=== PATIENT | female | born 1940 | race Caucasian/White ===

== ENCOUNTER 2019-02-28 19:15 | Inpatient (IN) | payer OTHER ==
[2019-02-28] MEDS ORDERED: ALBUTEROL/IPRATROPIUM 1 VIAL SOL INH ONE (19:26)
[2019-02-28] MEDS ORDERED: SODIUM CHLORIDE 0.9% 1000ML 1,000 ML IV ONE ×2 (19:26→19:49)
[2019-02-28] MEDS ORDERED: SOLUMEDROL 125 MG/2 ML 125 MG/2 ML PDS IV ONE (19:27)
[2019-02-28] MEDS ORDERED: SOLUMEDROL 125 MG/2 ML 125 MG/2 ML PDS ONE (19:31)
[2019-02-28] MEDS ORDERED: ALBUTEROL/IPRATROPIUM 1 VIAL SOL ONE (19:31)
[2019-02-28 19:43] LABS: BASOPHILS % (AUTO) 1 % (0-3); EOSINOPHILS % (AUTO) 0 % (0-9); HEMATOCRIT 37 % (35-47); HEMOGLOBIN 12.1 gm/dl (12.0-15.5); LYMPHOCYTES % (AUTO) 13.1 % (10-50); MEAN CORPUSCULAR HEMOGLOBIN 29.7 pg (27.0-32.0); MEAN CORPUSCULAR HGB CONC 32.6 gm/dl (32.0-36.0); MEAN CORPUSCULAR VOLUME 91 fL (81-99); MONOCYTES % (AUTO) 6.8 % (0-12); NEUTROPHILS % (AUTO) 78.9 % (37-80)
[2019-02-28 19:45] LABS: LACTIC ACID 2.8 mMol/L (0.0-2.0)
[2019-02-28] MEDS: SODIUM CHLORIDE 0.9% FLUSH 10 ML SOL IV PRN (19:45)
[2019-02-28 20:04] LABS: ALBUMIN 3.2 gm/dl (3.4-5.0); ALKALINE PHOSPHATASE 124 IU/L (46-116); ALT 16 IU/L (14-63); AST 11 IU/L (15-37); BILIRUBIN,TOTAL 0.3 mg/dl (0.2-1.0); BLOOD UREA NITROGEN 34 mg/dl (7-18); CALCIUM 9.2 mg/dl (8.5-10.1); CARBON DIOXIDE 22.6 mEq/L (21-32); CHLORIDE 100 mMol/L (98-107); CREATININE 1.85 mg/dl (0.60-1.00); GLUCOSE 305 mg/dl (74-106); POTASSIUM 3.8 mMol/L (3.5-5.1); SODIUM 135 mMol/L (136-145); TOTAL PROTEIN 6.9 gm/dl (6.4-8.2); TROP I < 0.017 ng/ml (0.000-0.056)
[2019-02-28] MEDS ORDERED: ASPIRIN 81 MG CHEWABLE CTB ONE (20:35)
[2019-02-28] MEDS ORDERED: ASPIRIN 81 MG CHEWABLE CTB PO ONE (20:36)
[2019-02-28 22:11] LABS: APPEARANCE,URINE Slightly Cloudy; BILIRUBIN,URINE NEGATIVE (NEGATIVE); COLOR,URINE Yellow; GLUCOSE, URINE (UA) 2+ (NEGATIVE); KETONES,URINE NEGATIVE (NEGATIVE); LEUKOCYTE ESTERASE ,URINE TRACE (NEGATIVE); NITRATE,URINE NEGATIVE (NEGATIVE); OCCULT BLOOD,URINE 1+ (NEG-TRACE); UROBILINOGEN,URINE 0.2 (0.2-1.0 EU)
[2019-02-28 22:16] LABS: RBC,URINE 0-2 (0-3AV/HPF)
[2019-02-28 22:17] LABS: BACTERIA 4+ (< 1+); CRYSTALS NEGATIVE (0-3 AVE/HPF); WBC,URINE 25-35 (0-5AV/HPF)
[2019-02-28] MEDS ORDERED: CLONIDINE 0.1 MG TAB PO ONE (22:38)
[2019-02-28] MEDS ORDERED: CLONIDINE 0.1 MG TAB ONE (22:44)
[2019-03-01] MEDS ORDERED: SODIUM CHLORIDE 0.9% 1000ML 1,000 ML IV ONE ×2 (00:48→00:52)
[2019-03-01] MEDS ORDERED: AZITHROMYCIN 500 MG PDS 500 MG in SODIUM CHLORIDE 0.9% 250 ML 250 ML IV ONE (00:58)
[2019-03-01 01:24] LABS: ABG PH 7.36 (7.35-7.45)
[2019-03-01] MEDS ORDERED: AZITHROMYCIN 500 MG PDS IV ONE (01:29)
[2019-03-01] MEDS ORDERED: SODIUM CHLORIDE 0.9% 50 ML 50 ML IV ONE (01:32)
[2019-03-01] MEDS ORDERED: ERTAPENEM SODIUM 1 GM PDS ONE (01:32)
[2019-03-01 01:39] LABS: ALBUMIN 2.9 gm/dl (3.4-5.0); BILIRUBIN,TOTAL 0.3 mg/dl (0.2-1.0); CALCIUM 9.7 mg/dl (8.5-10.1); CARBON DIOXIDE 21.1 mEq/L (21-32); CREATININE 1.66 mg/dl (0.60-1.00); POTASSIUM 4.2 mMol/L (3.5-5.1); TOTAL PROTEIN 6.8 gm/dl (6.4-8.2)
[2019-03-01 01:46] LABS: LACTIC ACID 1.8 mMol/L (0.0-2.0)
[2019-03-01] MEDS ORDERED: INSULIN GLARGINE, RECOMBINAN 100 U/ML SOL SC ONE (04:16)
[2019-03-01] MEDS ORDERED: APAP/HYDROCODONE 1 EACH TABLET PO ONE (04:17)
[2019-03-01] MEDS ORDERED: ALBUTEROL NEB SOL 2.5MG/3ML 1 VIAL SOL NEB PRN (05:40)
[2019-03-01] MEDS ORDERED: ALBUTEROL/IPRATROPIUM 1 VIAL SOL INH SCH ×2 (05:45→09:00)
[2019-03-01] MEDS ORDERED: ALBUTEROL HFA 60 PUFF/INHALER INH PRN (05:59)
[2019-03-01] MEDS ORDERED: BETAMETHASONE TOP PRN (05:59)
[2019-03-01] MEDS ORDERED: ACETAMINOPHEN PO PRN (05:59)
[2019-03-01] MEDS ORDERED: HYDROCODONE PO PRN (05:59)
[2019-03-01] MEDS ORDERED: PROPYLENE GLYC TOP PRN (05:59)
[2019-03-01] MEDS ORDERED: NOVOLOG FLEXPEN SC SCH ×2 (07:00→12:00)
[2019-03-01 07:09] LABS: LACTIC ACID 0.9 mMol/L (0.0-2.0)
[2019-03-01 07:31] LABS: BASOPHILS % (AUTO) 0 % (0-3); EOSINOPHILS % (AUTO) 0 % (0-9); HEMATOCRIT 33 % (35-47); HEMOGLOBIN 10.8 gm/dl (12.0-15.5); LYMPHOCYTES % (AUTO) 11.8 % (10-50); MEAN CORPUSCULAR HEMOGLOBIN 29.7 pg (27.0-32.0); MEAN CORPUSCULAR HGB CONC 32.1 gm/dl (32.0-36.0); MEAN CORPUSCULAR VOLUME 92 fL (81-99); MONOCYTES % (AUTO) 1.9 % (0-12)
[2019-03-01 07:37] VITALS: RESP 18
[2019-03-01 07:39] LABS: BLOOD UREA NITROGEN 35 mg/dl (7-18); CALCIUM 8.5 mg/dl (8.5-10.1); CARBON DIOXIDE 22.7 mEq/L (21-32); CHLORIDE 105 mMol/L (98-107); CREATININE 1.61 mg/dl (0.60-1.00); GLUCOSE 312 mg/dl (74-106); POTASSIUM 4.6 mMol/L (3.5-5.1); SODIUM 137 mMol/L (136-145); TROP I < 0.017 ng/ml (0.000-0.056)
[2019-03-01] MEDS ORDERED: SODIUM CHLORIDE 0.9% 1000ML 1,000 ML IV SCH (08:00)
[2019-03-01 08:20] VITALS: BP 183/73; TEMP 98.5
[2019-03-01] MEDS ORDERED: ASPIRIN 325 MG TAB PO SCH (09:00)
[2019-03-01] MEDS ORDERED: METFORMIN HYDROCHLORIDE 500 MG TAB PO SCH (09:00)
[2019-03-01] MEDS ORDERED: OMEPRAZOLE 20 MG CAPSULE PO SCH (09:00)
[2019-03-01] MEDS ORDERED: ASPIRIN 81 MG CHEWABLE CTB PO SCH (09:00)
[2019-03-01] MEDS ORDERED: ASPIRIN EC 81 MG PO SCH (09:00)
[2019-03-01] MEDS ORDERED: SOLUMEDROL 125 MG/2 ML 125 MG/2 ML PDS IV SCH (09:00)
[2019-03-01] MEDS ORDERED: SITAGLIPTIN PHOSPHATE 100 MG PO SCH (09:00)
[2019-03-01] MEDS ORDERED: PANTOPRAZOLE SODIUM 40 MG ECT PO SCH (09:00)
[2019-03-01] MEDS ORDERED: VALSARTAN PO SCH (09:00)
[2019-03-01] MEDS ORDERED: ATORVASTATIN 10 MG TAB PO SCH (09:00)
[2019-03-01] MEDS ORDERED: HCTZ PO SCH (09:00)
[2019-03-01] MEDS ORDERED: ERTAPENEM SODIUM 1 GM PDS 1 GM in SODIUM CHLORIDE 0.9% 50 ML 50 ML IV SCH (09:00)
[2019-03-01] MEDS: SODIUM CHLORIDE 0.9% FLUSH 10 ML SOL IV PRN (09:06)
[2019-03-01 09:22] VITALS: PULSE 71; O2SAT 96
[2019-03-01] MEDS ORDERED: APAP/HYDROCODONE 1 EACH TABLET PO PRN (10:00)
[2019-03-01] MEDS ORDERED: INSULIN GLARGINE, RECOMBINAN 100 U/ML SOL SC SCH (21:00)
[2019-03-01] MEDS ORDERED: ZOLPIDEM TARTRATE 5 MG TAB PO SCH (21:00)
[2019-03-02] MEDS ORDERED: LEVOTHYROXINE SODIUM 50 MCG TAB PO SCH (07:00)
== END 2019-03-01 13:50 | disposition home or self-care (01) | DRG 192 ==
LOC: ED 19:15 → ACUTE CARE 23:10 → OBSVTOIN 23:10
PROVIDERS: ADMIT Internal Medicine; ATTEND Family Medicine
DX: J44.1 Chronic obstructive pulmonary disease with (acute) exacerbation (principal); R06.02 Shortness of breath; R60.9 Edema, unspecified; T14.8XXA Other injury of unspecified body region, initial encounter; E11.42 Type 2 diabetes mellitus with diabetic polyneuropathy; E11.9 Type 2 diabetes mellitus without complications; Z79.899 Other long term (current) drug therapy; Z79.4 Long term (current) use of insulin; E86.0 Dehydration
CPT/HCPCS: 36415; 36600; 71045; 71250; 80048; 80053; 81001; 82803; 82962; 83880; 84484; 85025; 85378; 87040; 87077; 87088; 87186; 93005; 93012; 94150; 96365; 96366; 96374; 99070; 99222; 99285; J0456; J1335; J1817; J2930; J7613; A9270-GY; J1815